=== PATIENT | female | born 2000 | race Caucasian/White ===

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

== ENCOUNTER 2018-07-27 14:17 | Emergency (ER) | payer SELFPAY ==
[~2018-07-27] VITALS: Ht 157.5 cm; Wt 54.5 kg
[2018-07-27 14:18] VITALS: BP 129/59; PULSE 68; TEMP 97.6
== END 2018-07-27 15:32 | disposition home or self-care (01) ==
LOC: COL.ER 14:17
DX: M25.511 Pain in right shoulder (principal); J45.909 Unspecified asthma, uncomplicated; Z88.6 Allergy status to analgesic agent

== ENCOUNTER → 2020-03-04 | Outpatient (CLI) | payer SELFPAY | LOC: COL.RAD 07:23 | DX: R10.11 Right upper quadrant pain (principal) ==